=== PATIENT | female | born 1990 | race African-American/Black ===

== ENCOUNTER 2020-01-08 00:18 | Emergency (ER) | payer OTHER ==
[~2020-01-08] VITALS: Ht 157.5 cm; Wt 54.5 kg
[2020-01-08] MEDS ORDERED: HYDROCODONE/ACETAMINOPHEN 5-325 MG TABLET PO ONE (01:45)
[2020-01-08 03:24] VITALS: BP 129/64
== END 2020-01-08 03:38 | disposition home or self-care (01) ==
LOC: EMS 00:18
DX: M54.2 Cervicalgia (principal); V49.40XA Driver injured in collision with unspecified motor vehicles in traffic accident, initial encounter; Y93.89 Activity, other specified; Y92.89 Other specified places as the place of occurrence of the external cause; Y99.8 Other external cause status
CPT/HCPCS: 72040